=== PATIENT | female | born 1980 | race Caucasian/White ===

== ENCOUNTER 2019-03-04 13:18 | Emergency (ER) | payer OTHER ==
[2019-03-04 13:31] VITALS: BP 103/72
--- NOTE | 2019-03-04 14:00 | UC ---
General HPI - HPI Summary HPI Summary: CHIEF COMPLAINT and HPI: This is a healthy 38-year-old female who comes in complaining an episode of a rapid heart beat. the episode occurred approximately 20 half hours prior to coming to the urgent care center and is now resolved. She called her physician and was instructed to get an EKG. Her EKG shows a sinus rhythm of 76 with no ischemia. She has no symptoms of rapid heartbeat. She had a previous episode 2 days ago that was similar. The patient suffers from anxiety, but believes that these episodes are different from previous times when she has felt anxiety. The patient is hypothyroid and is on Synthroid, does drink coffee,and does intermittently use marijuana. She denies marijuana use proximate to these episodes and her thyroid testing showed a within normal limits. TSH 3 days ago when she saw her own physician. She denies chest pain or shortness of breath. VITAL SIGNS & SaO2 REVIEWED. Within normal limits unless noted here. NURSES NOTE REVIEWED: "c/o rapid HR and H/A" - History of Current Complaint Chief Complaint: UCCardiac Stated Complaint: HIGH HEART RATE, AND HEADACHE Time Seen by Provider: 03/04/19 13:30 Hx Last Menstrual Period: 02/13/19 Pain Intensity: 4 - Allergy/Home Medications Allergies/Adverse Reactions: Allergies Allergy/AdvReac Type Severity Reaction Status Date / Time No Known Allergies Allergy Verified 12/03/13 00:41 PMH/Surg Hx/FS Hx/Imm Hx - Additional Past Medical History Additional PMH: PAST MEDICAL HISTORY- CHRONIC and RECURRENT HEALTH PROBLEM LIST REVIEWED. Information relevant to present complaint: uses marijuana; on Synthroid; suffers intermittent anxiety. VISIT HISTORY REVIEWED: hypothyroidism MEDICATIONS & ALLERGIES REVIEWED. HYPERTENSION STATUS: not hypertensive FAMILY HISTORY: Positive for: diabetes, cancer. Denies FH of stroke. 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 . Endocrine History: Thyroid Disease, Hypothyroidism - on Synthroad 25mcg daily - Surgical History Surgical History: None - Social History Alcohol Use: None Substance Use Type: Marijuana Smoking Status (MU): Never Smoked Tobacco Review of Systems All Other Systems Reviewed And Are Negative: Yes Constitutional: Positive: Negative Skin: Positive: Negative Eyes: Positive: Negative Respiratory: Positive: Negative Cardiovascular: Positive: Palpitations. Negative: Chest Pain Gastrointestinal: Positive: Negative - functioning more Genitourinary: Positive: Negative Motor: Positive: Negative Neurovascular: Positive: Negative Musculoskeletal: Positive: Myalgia - neck Neurological: Positive: Headache. Negative: Weakness, Paresthesia, Numbness Psychological: Positive: Anxious Is Patient Immunocompromised?: No Physical Exam - Summary Physical Exam Summary: Appearance: The patient is well-appearing, is in no pain or distress, and is well-nourished. Eyes: Conjunctiva are clear. Pupils are equal and reactive to light and accommodation. Extra ocular muscle movement is intact. ENT: The hearing is grossly normal, the pharynx is normal, and the TMs are normal. There is no muffled or hoarse voice. No stridor. Neck: The neck is supple and there is no lymphadenopathy. Respiratory: The chest is non-tender to palpation and without crepitus. The lungs are clear, there are normal breath sounds, and there is no respiratory distress. No wheezes, rales or rhonchi. Cardiovascular: Heart sounds reveal a regular rate and rhythm. There are no clicks, rubs or murmurs. There are no carotid bruits or thrills. Circulation is grossly intact. Abdomen: The abdomen is soft and nontender. There is no organomegaly. Bowel sounds are present and within normal limits. No point tenderness at McBurneys point. No CVA tenderness. Musculoskeletal: Strength is intact. The patient moves all extremities. Neurological: The patient is alert. Motor and sensory are examination grossly intact. Speech is normal. Psychological: The patient displays age appropriate behavior, and is conversant. GCS=15. Skin: Negative for rashes. Summary: normal physical examination. Triage Information Reviewed: Yes Vital Signs: Initial Vital Signs Temp 98.1 F 03/04/19 13:26 Pulse 76 03/04/19 13:26 Resp 18 03/04/19 13:26 BP 103/72 03/04/19 13:26 Pulse Ox 99 03/04/19 13:26 Course/Dx - Course Course Of Treatment: Patient comes to the urgent care Center requesting an EKG for her episodes of rapid heartbeat. The condition is now resolved. Her vital signs are stable. She is on Synthroid, intermittently smokes marijuana and has a history of anxiety. None of these possible causes explain her current episodes. 4 days ago she had a headache, joint pain and myalgias. She was tested for Lyme, which was negative. She was seen 3 days ago by her own doctor. At the moment, my diagnosis is intermittent episode of tachycardia, possibly related to anxiety. The patient has been instructed to follow-up with her physician for further diagnosis and treatment as needed. - Differential Dx - Multi-Symptom Differential Diagnoses: Cardiac Ischemia, Other - CARDIAC ARRYTHMIA - Diagnoses Provider Diagnosis: Intermittent palpitations Discharge ED - Sign-Out/Discharge Documenting (check all that apply): Patient Departure All imaging exams completed and their final reports reviewed: No Studies - Discharge Plan Condition: Stable Disposition: HOME Patient Education Materials: Heart Palpitations (DC) Referrals: Pooja Lua DO [Primary Care Provider] - Additional Instructions: WE DISCUSSED: PLEASE SEEK CARE AT THE EMERGENCY DEPARTMENT IF SYMPTOMS WORSEN OR IF NEW SYMPTOMS DEVELOP. FOLLOW UP WITH YOUR PRIMARY CARE PHYSICIAN. YOUR DIAGNOSIS IS: intermittent rapid heart beat; "PALPITATIONS" YOUR PRESCRIPTION RECOMMENDATION IS: See attached description. Restrict use of coffee or marijuana. If continued episodes, you can be given a monitor to follow your heart beat over 1-2 days. Go to ED for dizziness,chest pain, or sustained episode of a rapid heart beat. Call us at any time with any questions or concerns. - Billing Disposition and Condition Condition: STABLE Disposition: Home
== END 2019-03-04 14:35 | disposition home or self-care (01) ==
LOC: UCEAST 13:18
DX: R00.2 Palpitations (principal)
CPT/HCPCS: 93005; 99211; G0463